=== PATIENT | female | born 1955 | race Caucasian/White ===

== ENCOUNTER → 2018-06-16 10:57 | Outpatient (CLI) | payer OTHER ==
[2011-07-24 07:19] VITALS: BMI 25.1
== END | disposition home or self-care (01) ==
LOC: D.RAD 10:57
DX: Z02.71 Encounter for disability determination (principal)

== ENCOUNTER → 2020-05-10 14:02 | Outpatient (CLI) | payer MEDICARE, BC ==
[2011-07-24 07:19] VITALS: BMI 25.1
== END | disposition home or self-care (01) ==
LOC: D.MRI 14:02
PROVIDERS: ATTEND Orthopaedic Surgery
DX: S82.145A Nondisplaced bicondylar fracture of left tibia, initial encounter for closed fracture (principal)

== ENCOUNTER 2020-06-07 05:50 | Day surgery (SDC) | payer MEDICARE, BC ==
[2020-06-06 09:17] LABS: HEMATOCRIT 38.9 % (36.0-48.0); HEMOGLOBIN 13.1 g/dL (12-16); MCH 30.8 pg (26.0-34.0); MCHC 33.7 g/dL (31.0-37.0); MCV 91.5 fL (80.0-100.0); MEAN PLATELET VOLUME 9.1 fL (7.4-10.4); RBC 4.25 10x6/uL (4.00-5.40); WBC 5.8 10x3/uL (4.8-10.8)
--- NOTE | 2020-06-06 12:10 | NUR ---
RR- 16, HR- 74, POX- 98% T- 97.5, BP LA-152/71
[~2020-06-07] VITALS: Ht 170.2 cm; Wt 83.9 kg
[~2020-06-07 05:50] MED LIST: ACETAMINOPHEN325 MG PO; ATIVAN1 MG PO; IBUPROFEN800 MG PO; NP THYROID30 MG PO; SOMA350 MG PO; TOPROL XL100 MG PO
[2020-06-07 07:10] VITALS: BP 130/85; Ht 170.2 cm; Wt 83.9 kg
[2020-06-07] MEDS ORDERED: HYDROCODON-ACE1 EA10 PO (08:17)
--- NOTE | 2020-06-07 08:34 | NUR ---
OPA IN AIRWAY ON ADMIT
--- NOTE | 2020-06-07 08:37 | NUR ---
SCOPE PATCH BEHIND RT EAR ON ADMIT
--- NOTE | 2020-06-07 09:44 | NUR ---
0934 PT MEDICATED FOR BURNING SENSATION IN LEFT LEG. DESCRIBES PAIN AT 3 OUT OF 10 AND WANTS NORCO DISCOMFORT.
--- NOTE | 2020-06-07 09:49 | NUR ---
4923 DISCHARGE INSTRUCTIONS REVIEWED [facility] PT AND HER . BOTH VOICE UNDERSTANDING OF INSTRUCTIONS.
--- NOTE | 2020-06-07 10:00 | NUR ---
0956 IV DC'D. CATHETER TIP INTACT. NO BLEEDING AT SITE. BANDAID APPLIED. PT STATES HER BURNING PAIN IS DECREASING AND STATES IT IS A 2 OUT OF 10
--- NOTE | 2020-06-08 14:21 | OP ---
PATIENT NAME: KAYA MOLINA MEDICAL RECORD: [id number] :53 LOCATION:D.OPS ADMISSION DATE: SURGEON: LOPEZ CASE MD DATE OF OPERATION: 06/07/2020 PREOPERATIVE DIAGNOSIS: Medial meniscus tear of the left knee. POSTOPERATIVE DIAGNOSIS: Medial meniscus tear of the left knee. PROCEDURE: Arthroscopic partial medial meniscectomy. SURGEON: Lopez Case MD ANESTHESIA: General. INTRAOPERATIVE COMPLICATIONS: None. SUMMARY OF PATHOLOGIC FINDINGS: The patient had a complex tear of the posterior horn of the medial meniscus. 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 The other compartments were relatively clean. The patient's previous ACL graft was intact. OPERATIVE SUMMARY IN DETAIL: After obtaining appropriate preoperative orthopedic surgery consent as well as anesthetic consultation, evaluation and clearance, the patient was brought to the operating room and placed on the operating table in supine position. After laryngeal mask airway was administered, tourniquet was placed about the proximal aspect of the left lower extremity. The left lower extremity was then prepped and draped in routine sterile fashion. The leg was elevated and exsanguinated, tourniquet was inflated to 350 mmHg. At this point, the appropriate timeout was taken and agreed upon by all given the patient unique identifiers inferolateral portal was established plus followed by superomedial portal and inferomedial portal. Diagnostic arthroscopy showed the patient to have the above findings of the left knee. Combination of meniscotome as well as full radius resector utilized to debride the meniscus back to stable meniscal elements finding a mild chondromalacia was noted. ACL was intact. Lateral meniscus was in excellent condition as was the patellofemoral joint. Having completed this, the knee was insufflated with 30 cc of 0.25% Marcaine with epinephrine and 80 mg of Depo-Medrol. Arthroscopy portals were closed in routine interrupted fashion using 4-0 Prolene. Sterile dressings were applied. The patient was awakened, taken to the recovery room in stable condition. All final needle and sponge counts were correct. TRANSINT:[id number] Voice Confirmation ID: [id number] DOCUMENT ID: [id number] LOPEZ CASE MD at 1421 CC: [id number] DICTATION DATE: 06/08/20 1051 GLOBE MOUNTER: 06/08/20 1316 [facility] 06/07/20 [id number] [place] [id number]
== END 2020-06-07 10:02 | disposition home or self-care (01) ==
LOC: D.OPS 05:50 → D.PAN 08:00 → D.OPS 08:05 → D.PAN 08:05 → D.OPS 08:15 → D.PAN 08:15 → D.OPS 10:02
PROVIDERS: Anesthesiology; ATTEND Orthopaedic Surgery
DX: S83.242A Other tear of medial meniscus, current injury, left knee, initial encounter (principal); X58.XXXA Exposure to other specified factors, initial encounter